=== PATIENT | female | born 1955 ===

== ENCOUNTER 2018-08-30 11:10 | Emergency (ER) | payer OTHER ==
[~2018-08-30] VITALS: Ht 165.1 cm; Wt 108.9 kg
[2018-08-30] MEDS ORDERED: FORTAMET500 MG (11:17)
== END 2018-08-30 17:09 | disposition home or self-care (01) ==
LOC: ER 11:10
DX: B34.9 Viral infection, unspecified (principal); N39.0 Urinary tract infection, site not specified